=== PATIENT | female | born 1940 | race Caucasian/White ===

== ENCOUNTER → 2016-09-06 | Outpatient (CLI) | payer OTHER ==
[~2016-09-06] MED LIST: ABL/5 PO; ALPR0.25 PO; ALPR1TAB3 PO; CYTM25 PO; ESCI1TAB18 PO; ESCI1TAB6 PO; FLUT0.15 NAE; GLC500 PO; IPRA1AER2 INH; LAMO100T16 PO; LEVO150T PO; LIOT25TA10 PO; LITH1TAB10 PO; LITH300T2 PO; LMC/150 PO; METF-384 PO; METH5TAB4 PO; MULT60CA PO; SYN100 PO; SYN125 PO; TEMA30CA4 PO
[2016-09-06 10:02] LABS: ESTIMATED AVERAGE GLUCOSE 140 mg/dl; HA1C FLAG Normal (Normal)
[2016-09-06 10:25] LABS: ALT/SGPT 28 U/L (12-78); BLOOD UREA NITROGEN 24 mg/dl (7-18); CALCIUM 9.5 mg/dl (8.5-10.1); CARBON DIOXIDE 24 mmol/L (21-32); CHLORIDE 104 mmol/L (98-107); CHOLESTEROL 241 mg/dl (0-200); GLUCOSE 144 mg/dl (70-99); SODIUM 139 mmol/L (136-145); TRIGLYCERIDES 237 mg/dl (0-150); VERY LOW DENSITY LIPOPROT CALC 47 mg/dl
[2016-09-06 10:36] LABS: ALKALINE PHOSPHATASE 68 U/L (45-117); AST/SGOT 17 U/L (15-37); CHOLESTEROL/HDL RATIO 3.1; HDL CHOLESTEROL 79 mg/dl; LDL CHOLESTEROL CALCULATED 115 mg/dl
== END | disposition home or self-care (01) ==
LOC: C.LAB1850 08:19
PROVIDERS: ATTEND Family Medicine
DX: F31.81 Bipolar II disorder (principal); E78.00 Pure hypercholesterolemia, unspecified; I10 Essential (primary) hypertension; E11.9 Type 2 diabetes mellitus without complications; E06.3 Autoimmune thyroiditis

== ENCOUNTER → 2016-12-07 | Outpatient (CLI) | payer OTHER ==
[2016-12-07 18:04] LABS: THYROID STIMULATING HORMONE 0.467 uIu/ml (0.300-4.500)
== END | disposition home or self-care (01) ==
LOC: C.LAB1850 16:26
PROVIDERS: ATTEND Family Medicine
DX: E06.3 Autoimmune thyroiditis (principal)

== ENCOUNTER → 2017-03-09 | Outpatient (CLI) | payer OTHER ==
[2017-03-09 10:49] LABS: BASO % 0.9 %; BASO ABS # 0.07 K/uL (0-0.2); COMPLETE YES; EOS % 4.1 %; HEMATOCRIT 42.1 % (37-47); IG% 0.2 %; LYMPH % 45.5 %; LYMPH ABS # 3.67 K/uL (1.2-3.4); MEAN CELL VOLUME 88.6 fL (80-100); MEAN CORPUSCULAR HEMOGLOBIN 30.3 pg (25-34); MEAN CORPUSCULAR HGB CONC 34.2 g/dl (32-36); MEAN PLATELET VOLUME 11.2 fL (7.4-10.4); MONO % 7.4 %; NEUT % 41.9 %; PLATELET COUNT 254 K/uL (130-400); RED BLOOD COUNT 4.75 M/uL (4.2-5.4); WHITE BLOOD COUNT 8.06 K/uL (4.8-10.8)
[2017-03-09 11:11] LABS: ALT/SGPT 25 U/L (12-78); BLOOD UREA NITROGEN 21 mg/dl (7-18); BUN/CREATININE RATIO 20.7 (10-20); CALCIUM 9.4 mg/dl (8.5-10.1); CARBON DIOXIDE 28 mmol/L (21-32); CHLORIDE 105 mmol/L (98-107); CHOLESTEROL 203 mg/dl (0-200); GLUCOSE 126 mg/dl (70-99); POTASSIUM 4.4 mmol/L (3.5-5.1); SODIUM 138 mmol/L (136-145); TRIGLYCERIDES 237 mg/dl (0-150); VERY LOW DENSITY LIPOPROT CALC 47 mg/dl
[2017-03-09 11:20] LABS: ALKALINE PHOSPHATASE 76 U/L (45-117); AST/SGOT 13 U/L (15-37); CHOLESTEROL/HDL RATIO 2.8; HDL CHOLESTEROL 72 mg/dl; LDL CHOLESTEROL CALCULATED 84 mg/dl; THYROID STIMULATING HORMONE 0.677 uIu/ml (0.300-4.500)
[2017-03-09 12:18] LABS: ESTIMATED AVERAGE GLUCOSE 146 mg/dl; HA1C FLAG Normal (Normal)
== END | disposition home or self-care (01) ==
LOC: C.LABBC 08:01
PROVIDERS: ATTEND Internal Medicine
DX: E78.00 Pure hypercholesterolemia, unspecified (principal); I10 Essential (primary) hypertension; E11.9 Type 2 diabetes mellitus without complications; E53.8 Deficiency of other specified B group vitamins; M85.80 Other specified disorders of bone density and structure, unspecified site

== ENCOUNTER → 2017-03-24 | Outpatient (CLI) | payer OTHER | END | disposition home or self-care (01) | LOC: C.LABBC 08:45 | PROVIDERS: ATTEND Psychiatry & Neurology Psychiatry | DX: F31.81 Bipolar II disorder (principal) ==

== ENCOUNTER → 2017-04-25 | Outpatient (CLI) | payer OTHER ==
[2017-04-25 17:54] LABS: BASO % 0.5 %; BASO ABS # 0.04 K/uL (0-0.2); COMPLETE YES; EOS % 2.5 %; HEMATOCRIT 40.7 % (37-47); IG% 0.4 %; LYMPH % 36.5 %; LYMPH ABS # 3.02 K/uL (1.2-3.4); MEAN CELL VOLUME 89.8 fL (80-100); MEAN CORPUSCULAR HEMOGLOBIN 30.5 pg (25-34); MEAN CORPUSCULAR HGB CONC 33.9 g/dl (32-36); MONO % 5.8 %; NEUT % 54.3 %; PLATELET COUNT 273 K/uL (130-400); RED BLOOD COUNT 4.53 M/uL (4.2-5.4); WHITE BLOOD COUNT 8.27 K/uL (4.8-10.8)
[2017-04-25 18:16] LABS: ALT/SGPT 49 U/L (12-78); AST/SGOT 28 U/L (15-37); BLOOD UREA NITROGEN 23 mg/dl (7-18); CALCIUM 9.7 mg/dl (8.5-10.1); CARBON DIOXIDE 28 mmol/L (21-32); CHLORIDE 105 mmol/L (98-107); GLUCOSE 138 mg/dl (70-99); POTASSIUM 4.5 mmol/L (3.5-5.1); SODIUM 141 mmol/L (136-145); URIC ACID 6.2 mg/dl (2.6-7.2)
[2017-04-25 18:27] LABS: ALB/GLOB RATIO 1.1 (0.9-2); ALKALINE PHOSPHATASE 83 U/L (45-117); THYROID STIMULATING HORMONE 0.914 uIu/ml (0.300-4.500)
--- NOTE | 2017-04-25 18:27 | DIAGNOSTIC IMAGING REPORT ---
CHEST 2 VIEWS ROUTINE HISTORY: 76 years-old Female R06.02 Shortness of ettuzcW50.9 [id number] chronic shortness of breath. Initial exam. COMPARISON: None available TECHNIQUE: Frontal and lateral views of the chest FINDINGS: Cardiomediastinal and hilar silhouettes are within normal limits. There is atherosclerosis of the aorta. No pneumothorax, pleural effusion or focal airspace consolidation. There is no overt pulmonary edema. Lungs are mildly hyperinflated. Degenerative changes are seen about the spine and shoulders. Bones are mildly demineralized. IMPRESSION: Mild hyperinflation without acute cardiopulmonary abnormality. The above report was generated using voice recognition software. It may contain grammatical, syntax or spelling errors. Electronically signed by: Sonny Metz M.D. 04/25/2017 6:26 PM Dictated Date/Time: 04/25/2017 6:25 PM
== END | disposition home or self-care (01) ==
LOC: C.RAD 16:51
PROVIDERS: ATTEND Nurse Practitioner Family
DX: Z00.00 Encounter for general adult medical examination without abnormal findings (principal); R60.9 Edema, unspecified; R06.02 Shortness of breath; E11.9 Type 2 diabetes mellitus without complications; I10 Essential (primary) hypertension

== ENCOUNTER 2017-04-26 09:01 | Emergency (ER) | payer OTHER ==
[~2017-04-26] VITALS: Ht 162.6 cm; Wt 77.7 kg
[~2017-04-26 09:01] MED LIST changes: -ABL/5 PO; -ALPR0.25 PO; -ESCI1TAB18 PO; -ESCI1TAB6 PO; -FLUT0.15 NAE; -IPRA1AER2 INH; -LEVO150T PO; -LIOT25TA10 PO; -LITH1TAB10 PO; -LMC/150 PO; -METF-384 PO; -METH5TAB4 PO; -MULT60CA PO; -SYN100 PO
[2017-04-26 09:06] VITALS: TEMP 36.5; Ht 162.6 cm; Wt 77.7 kg
[2017-04-26] MEDS ORDERED: OPTIRAY 320 IV PRN (09:45)
[2017-04-26] MEDS ORDERED: MULT60CA PO (09:50)
[2017-04-26] MEDS ORDERED: METH5TAB4 PO (09:50)
[2017-04-26] MEDS ORDERED: LIOT25TA10 PO (09:50)
[2017-04-26] MEDS ORDERED: FLUT0.15 NAE (09:50)
[2017-04-26] MEDS ORDERED: LMC/150 PO (09:50)
[2017-04-26] MEDS ORDERED: SYN100 PO (09:50)
[2017-04-26] MEDS ORDERED: GLC500 PO (09:50)
[2017-04-26] MEDS ORDERED: ESCI1TAB18 PO (09:50)
[2017-04-26] MEDS ORDERED: ALPR0.25 PO (09:50)
[2017-04-26] MEDS ORDERED: ABL/5 PO (09:59)
[2017-04-26] MEDS ORDERED: METF-384 PO (09:59)
[2017-04-26] MEDS ORDERED: LEVO150T PO (09:59)
[2017-04-26 10:03] LABS: BASO % 0.7 %; BASO ABS # 0.05 K/uL (0-0.2); COMPLETE YES; EOS % 3.4 %; HEMATOCRIT 39.3 % (37-47); IG% 0.5 %; LYMPH % 27.7 %; LYMPH ABS # 2.03 K/uL (1.2-3.4); MEAN CELL VOLUME 91.2 fL (80-100); MEAN CORPUSCULAR HEMOGLOBIN 30.4 pg (25-34); MEAN CORPUSCULAR HGB CONC 33.3 g/dl (32-36); MEAN PLATELET VOLUME 10.7 fL (7.4-10.4); MONO % 8.9 %; NEUT % 58.8 %; PLATELET COUNT 253 K/uL (130-400); RED BLOOD COUNT 4.31 M/uL (4.2-5.4); WHITE BLOOD COUNT 7.33 K/uL (4.8-10.8)
--- NOTE | 2017-04-26 10:03 | EMERGENCY ROOM VISIT NOTE ---
History Report prepared by Blane: Brandie Lopez Under the Supervision of: Dr. Harley Holloway M.D. First contact with patient: 09:27 Chief Complaint: SHORTNESS OF BREATH Stated Complaint: SOB, SWOLLEN FEET, POSSIBLE BLOOD CLOT, REFERRED Nursing Triage Summary: pt reports several weeks of increased sob , to PCP 1 day ago with labs completed , told to come to Ed for CT of chest to RO PE History of Present Illness The patient is a 76 year old female who presents to the Emergency Room with complaints of increased shortness of breath over the past four months. She currently rates her discomfort as a 10/10 in severity. The patient states that over the past 2.5 weeks she has noticed foot swelling, noting that she cannot get her shoes on. She states that she has been feeling breathless for the past four months. The patient denies any history of congestive heart failure or pneumonia. She denies any chest pain. The patient denies any history of pulmonary emboli. She reports an increased cough. The patient states that she quit smoking in 1990. The patient presents to the ED at the recommendation of her doctor's office. There was concern for PE. The patient did have an ultrasound last week of her legs showing no DVT. Source of History: patient Onset: four months Position: other (global) Symptom Intensity: 10/10 Quality: other (shortness of breath) Timing: other (increased) Associated Symptoms: + cough, No chest pain Review of Systems See HPI for pertinent positives & negatives. A total of 10 systems reviewed and were otherwise negative. Past Medical & Surgical Medical Problems: (1) Breast cancer (2) Diabetes Surgical Problems: (1) H/O: hysterectomy (2) History of appendectomy Family History Patient reports no known family medical history. Social History Smoking Status: Never Smoker Smokeless Tobacco Use: No Marital Status: Housing Status: lives with family Occupation Status: retired Current/Historical Medications Scheduled Alprazolam (Xanax), 0.25 MG PO TID Aripiprazole (Abilify), 5 MG PO HS Escitalopram Oxalate (Lexapro), 5 MG PO QAM Ipratropium-Albuterol (Combivent Respimat), 2 PUFFS INH QID Levothyroxine Sodium (Synthroid), 150 MCG PO QAM Albers Carbonate Ext Rel (Lithobid Ext Rel), 300 MG PO HS Metformin Hcl (Glucophage), 1,000 MG PO BID Multiple Vitamins W/ Minerals (Preservision Areds 2), 1 TAB PO BID Allergies Coded Allergies: No Known Allergies (Unverified , 04/26/17) Physical Exam Vital Signs Date Time Temp Pulse Resp B/P (MAP) Pulse Ox O2 Delivery O2 Flow Rate FiO2 04/26/17 12:29 63 19 137/71 97 04/26/17 12:02 63 19 137/71 97 Nebulizer 04/26/17 11:05 67 18 142/69 98 Room Air 04/26/17 09:27 74 04/26/17 09:06 36.5 76 20 140/77 96 Room Air Physical Exam GENERAL: Patient is in no acute distress. HEENT: No acute trauma, normocephalic atraumatic, mucous membranes moist, no nasal congestion, no scleral icterus. NECK: No stridor, no adenopathy, no meningismus, trachea is midline. LUNGS: Clear to auscultation bilaterally, no wheeze, no rhonchi, breath sounds equal. HEART: Without murmurs gallops or rubs, regular rate and rhythm. ABDOMEN: Soft, nontender, bowel sounds positive, no hernias, no peritonitis. EXTREMITIES: No cyanosis or edema, full range of motion of all the joints without pain or difficulty, no signs for acute trauma. NEUROLOGIC: Oriented x 3, no acute motor or sensory deficits, no focal weakness. SKIN: No rash, no jaundice, no diaphoresis. Medical Decision & Procedures ER Provider Diagnostic Interpretation: Radiology results as stated below per my review and radiologist interpretation: (CHEST FOR PE) ANGIO WITH CLINICAL HISTORY: 76 years-old Female presenting with chest pain, shortness of breath. TECHNIQUE: Multidetector CT angiography of the chest was performed after administration of intravenous contrast. 3-D volumetric and/or maximum intensity projection (MIP) images were subsequently reconstructed for review. IV contrast: 94 mL of Optiray 320. A dose lowering technique was used consistent with the principles of ALARA (as low as reasonably achievable). COMPARISON: None. CT DOSE (mGy.cm): The estimated cumulative dose is 453.17 mGycm. FINDINGS: [employer] It topogram: Unremarkable. Pulmonary vasculature: The study is adequate for assessment of the pulmonary vascular tree. No filling defect within the pulmonary arteries to suggest embolus. Main pulmonary artery is not enlarged. No flattening of the interventricular septum. No intracardiac intracardiac filling defect. No reflux of contrast into the hepatic veins. Remaining chest: On soft tissue windows, post surgical changes of bilateral mastectomies likely present. Prominent hilar lymph nodes and subcentimeter mediastinal lymph nodes, possibly reactive. Scattered subcentimeter axillary lymph nodes. No internal mammary lymph nodes are apparent. Atherosclerosis of the aorta. Top normal heart size. Trace pericardial effusion. No pleural effusion. Small hiatal hernia. On lung windows, dependent changes likely atelectasis. Trace emphysematous changes at the lung apices. Pulmonary cyst noted in the left lower lobe. No pulmonary nodule is evident. Airways patent. On bone windows, mild degenerative changes of the thoracic spine. Degenerative changes of the glenohumeral joints, right greater than left. IMPRESSION: 1. No evidence of pulmonary embolus. 2. Dependent atelectasis. 3. Emphysema. 4. Prominent hilar mediastinal lymph nodes, possibly reactive. Electronically signed by: Nas Rodriguez M.D. 04/26/2017 11:40 AM Dictated Date/Time: 04/26/2017 11:34 AM CHEST ONE VIEW PORTABLE CLINICAL HISTORY: 76 years-old Female presenting with EVALUATE RESPIRATORY DISTRESS.DYSPNEA. TECHNIQUE: Portable upright AP view of the chest was obtained. COMPARISON: 04/25/2017. FINDINGS: Atherosclerosis of aortic arch. Cardiac silhouette normal in size. Mild hyperinflation as on prior exam. Lungs and pleural spaces clear. Osseous structures normal. Upper abdomen normal. IMPRESSION: 1. Mild hyperinflation. Otherwise no acute cardiopulmonary disease. Electronically signed by: Nas Rodriguez M.D. 04/26/2017 10:08 AM Dictated Date/Time: 04/26/2017 10:07 AM Laboratory Results 04/26/17 09:49 Red Blood Count 4.31, Mean Corpuscular Volume 91.2, Mean Corpuscular Hemoglobin 30.4, Mean Corpuscular Hemoglobin Concent 33.3, Mean Platelet Volume 10.7, Neutrophils (%) (Auto) 58.8, Lymphocytes (%) (Auto) 27.7, Monocytes (%) (Auto) 8.9, Eosinophils (%) (Auto) 3.4, Basophils (%) (Auto) 0.7, Neutrophils # (Auto) 4.31, Lymphocytes # (Auto) 2.03, Monocytes # (Auto) 0.65, Eosinophils # (Auto) 0.25, Basophils # (Auto) 0.05 04/26/17 09:49 04/26/17 10:45 Test 04/26/17 09:49 04/26/17 10:45 White Blood Count 7.33 K/uL (4.8-10.8) Red Blood Count 4.31 M/uL (4.2-5.4) Hemoglobin 13.1 g/dL (12.0-16.0) Hematocrit 39.3 % (37-47) Mean Corpuscular Volume 91.2 fL (80-100) Mean Corpuscular Hemoglobin 30.4 pg (25-34) Mean Corpuscular Hemoglobin Concent 33.3 g/dl (32-36) Platelet Count 253 K/uL (130-400) Mean Platelet Volume 10.7 fL (7.4-10.4) Neutrophils (%) (Auto) 58.8 % Lymphocytes (%) (Auto) 27.7 % Monocytes (%) (Auto) 8.9 % Eosinophils (%) (Auto) 3.4 % Basophils (%) (Auto) 0.7 % Neutrophils # (Auto) 4.31 K/uL (1.4-6.5) Lymphocytes # (Auto) 2.03 K/uL (1.2-3.4) Monocytes # (Auto) 0.65 K/uL (0.11-0.59) Eosinophils # (Auto) 0.25 K/uL (0-0.5) Basophils # (Auto) 0.05 K/uL (0-0.2) RDW Standard Deviation 48.2 fL (36.4-46.3) RDW Coefficient of Variation 14.3 % (11.5-14.5) Immature Granulocyte % (Auto) 0.5 % Immature Granulocyte # (Auto) 0.04 K/uL (0.00-0.02) Anion Gap 7.0 mmol/L (3-11) Est Creatinine Clear Calc Drug Dose 40.2 ml/min Estimated GFR () 50.8 Estimated GFR (Non- 43.9 BUN/Creatinine Ratio 23.2 (10-20) Calcium Level 9.7 mg/dl (8.5-10.1) Troponin I < 0.015 ng/ml (0-0.045) Thyroid Stimulating Hormone (TSH) 0.984 uIu/ml (0.300-4.500) Free Thyroxine 1.25 ng/dl (0.80-1.60) Prothrombin Time 10.2 SECONDS (9.0-12.0) Prothromb Time International Ratio 1.0 (0.9-1.1) Activated Partial Thromboplast Time 24.2 SECONDS (21.0-31.0) Partial Thromboplastin Ratio 0.9 Albers Level 0.4 mMOL/L (0.6-1.2) Laboratory results reviewed by me. Medications Administered Medications (Trade) Dose Ordered Sig/[place] Route Start Time Stop Time Status Last Admin Dose Admin Albuterol/ Ipratropium (Duoneb) 3 ml NOW STAT INH 04/26/17 11:38 04/26/17 11:39 DC 04/26/17 12:01 3 ML ECG Indication: SOB/dyspnea Rate (beats per minute): 71 Rhythm: normal sinus Findings: no acute ischemic change, no ectopy ED Course 927: The patient was evaluated in room A4B. A complete history and physical exam was performed. 1138: Ordered Duoneb 3 ml INH. 1210: I reevaluated the patient and she is resting comfortably. I discussed the exam findings with her and I discussed the treatment plan. She verbalized complete understanding and agreement. She is ready to go home. Medical Decision The patient is a 76 year old female who presents to the ED with complaints of shortness of breath. Differential diagnoses considered include Pneumonia, bronchitis, CHF, anemia, electrolyte imbalance, renal failure, PE, heart failure. There is no leukocytosis or concerning anemia. No significant electrolyte abnormality, kidney failure. The patient appears to be in a euthyroid state. EKG shows a sinus rhythm, no acute ischemia. Cardiac enzyme testing 1 is not consistent with acute cardiac injury. Chest x-ray shows some emphysema or COPD , no pneumonia or pneumothorax. Chest CT does not show evidence for PE, emphysema was seen. Albers level was not toxic. The patient was given a DuoNeb. She was reassured by her testing. I suspect her dyspnea may be from COPD/emphysema. She is a previous smoker. She is being discharged on a Combivent inhaler and will follow with her doctors office , if worsening, she can return. Medication Reconcilliation Current Medication List: was personally reviewed by me Blood Pressure Screening Patient's blood pressure: Elevated blood pressure Blood pressure disposition: Elevated BP felt to be situational, Did not require urgent referral Impression Primary Impression: Shortness of breath Additional Impression: Emphysema of lung Scribe Attestation The scribe's documentation has been prepared under my direction and personally reviewed by me in its entirety. I confirm that the note above accurately reflects all work, treatment, procedures, and medical decision making performed by me. Departure Information Dispostion Home / Self-Care Prescriptions Ipratropium-Albuterol (COMBIVENT RESPIMAT) 1 Aer Aer 2 PUFFS INH QID, #1 INH 2 Refills Prov: Harley Holloway M.D. 04/26/17 Referrals Loan Sorensen M.D. (PCP) Forms HOME CARE DOCUMENTATION FORM, IMPORTANT VISIT INFORMATION Patient Instructions My [facility] Additional Instructions start your inhaler 2 puffs 3-4 times per day see mariposa harp for recheck this week return for worsening symptoms no clot today by our testing. Problem Qualifiers
[2017-04-26] MEDS ORDERED: ESCI1TAB6 PO (10:05)
[2017-04-26] MEDS ORDERED: LITH1TAB10 PO (10:05)
--- NOTE | 2017-04-26 10:09 | DIAGNOSTIC IMAGING REPORT ---
CHEST ONE VIEW PORTABLE CLINICAL HISTORY: 76 years-old Female presenting with EVALUATE RESPIRATORY DISTRESS.DYSPNEA. TECHNIQUE: Portable upright AP view of the chest was obtained. COMPARISON: 04/25/2017. FINDINGS: Atherosclerosis of aortic arch. Cardiac silhouette normal in size. Mild hyperinflation as on prior exam. Lungs and pleural spaces clear. Osseous structures normal. Upper abdomen normal. IMPRESSION: 1. Mild hyperinflation. Otherwise no acute cardiopulmonary disease. Electronically signed by: Nas Rodriguez M.D. 04/26/2017 10:08 AM Dictated Date/Time: 04/26/2017 10:07 AM
[2017-04-26 10:27] LABS: BLOOD UREA NITROGEN 28 mg/dl (7-18); BUN/CREATININE RATIO 23.2 (10-20); CALCIUM 9.7 mg/dl (8.5-10.1); CARBON DIOXIDE 25 mmol/L (21-32); CHLORIDE 109 mmol/L (98-107); GLUCOSE 135 mg/dl (70-99); SODIUM 141 mmol/L (136-145)
[2017-04-26 10:32] LABS: THYROID STIMULATING HORMONE 0.984 uIu/ml (0.300-4.500)
[2017-04-26 11:09] LABS: PARTIAL THROMBOPLASTIN RATIO 0.9; PROTHROMBIN TIME (PATIENT) 10.2 SECONDS (9.0-12.0)
[2017-04-26] MEDS ORDERED: ALBUT/IPRATROP 3MG/0.5MG NEB 3 ML VIAL INH STA (11:38)
--- NOTE | 2017-04-26 11:41 | DIAGNOSTIC IMAGING REPORT ---
(CHEST FOR PE) ANGIO WITH CLINICAL HISTORY: 76 years-old Female presenting with chest pain, shortness of breath. TECHNIQUE: Multidetector CT angiography of the chest was performed after administration of intravenous contrast. 3-D volumetric and/or maximum intensity projection (MIP) images were subsequently reconstructed for review. IV contrast: 94 mL of Optiray 320. A dose lowering technique was used consistent with the principles of ALARA (as low as reasonably achievable). COMPARISON: None. CT DOSE (mGy.cm): The estimated cumulative dose is 453.17 mGycm. FINDINGS: Log Turner topogram: Unremarkable. Pulmonary vasculature: The study is adequate for assessment of the pulmonary vascular tree. No filling defect within the pulmonary arteries to suggest embolus. Main pulmonary artery is not enlarged. No flattening of the interventricular septum. No intracardiac intracardiac filling defect. No reflux of contrast into the hepatic veins. Remaining chest: On soft tissue windows, post surgical changes of bilateral mastectomies likely present. Prominent hilar lymph nodes and subcentimeter mediastinal lymph nodes, possibly reactive. Scattered subcentimeter axillary lymph nodes. No internal mammary lymph nodes are apparent. Atherosclerosis of the aorta. Top normal heart size. Trace pericardial effusion. No pleural effusion. Small hiatal hernia. On lung windows, dependent changes likely atelectasis. Trace emphysematous changes at the lung apices. Pulmonary cyst noted in the left lower lobe. No pulmonary nodule is evident. Airways patent. On bone windows, mild degenerative changes of the thoracic spine. Degenerative changes of the glenohumeral joints, right greater than left. IMPRESSION: 1. No evidence of pulmonary embolus. 2. Dependent atelectasis. 3. Emphysema. 4. Prominent hilar mediastinal lymph nodes, possibly reactive. Electronically signed by: Nas Rodriguez M.D. 04/26/2017 11:40 AM Dictated Date/Time: 04/26/2017 11:34 AM
[2017-04-26] MEDS ORDERED: IPRA1AER2 INH (12:21)
[2017-04-26 12:29] VITALS: BP 137/71; PULSE 63; O2SAT 97
== END 2017-04-26 12:29 | disposition home or self-care (01) ==
LOC: C.EDB 09:03 → C.EDA 12:29
DX: J43.9 Emphysema, unspecified (principal); R06.02 Shortness of breath; M79.89 Other specified soft tissue disorders; I70.0 Atherosclerosis of aorta; Z90.13 Acquired absence of bilateral breasts and nipples; Z85.3 Personal history of malignant neoplasm of breast; E11.9 Type 2 diabetes mellitus without complications; Z79.899 Other long term (current) drug therapy

== ENCOUNTER → 2017-04-26 | Outpatient (CLI) | payer OTHER ==
[2017-04-26 10:08] LABS: CHOLESTEROL/HDL RATIO 3.1
== END | disposition home or self-care (01) ==
LOC: C.LAB 08:32
PROVIDERS: ATTEND Internal Medicine
DX: Z00.00 Encounter for general adult medical examination without abnormal findings (principal); I10 Essential (primary) hypertension; E11.9 Type 2 diabetes mellitus without complications

== ENCOUNTER → 2017-11-02 | Outpatient (CLI) | payer OTHER ==
[~2017-11-02] MED LIST changes: +ABL/5 PO; +ALPR0.25 PO; -ALPR1TAB3 PO; -CYTM25 PO; +ESCI1TAB6 PO; -GLC500 PO; +IPRA1AER2 INH; -LAMO100T16 PO; +LEVO150T PO; +LITH1TAB10 PO; -LITH300T2 PO; +METF-384 PO; +MULT60CA PO; -SYN125 PO; -TEMA30CA4 PO
--- NOTE | 2017-11-02 12:07 | DIAGNOSTIC IMAGING REPORT ---
TWO VIEW CHEST CLINICAL HISTORY: Acute bronchitis. FINDINGS: PA and lateral chest radiographs are compared to chest x-ray and chest CT dated 04/26/2017. The cardiomediastinal silhouette is unremarkable. There is atherosclerotic calcification of the thoracic aorta. Chronic interstitial thickening is similar to previous. No airspace consolidation or pleural effusion is identified. There is no pneumothorax. The skeletal structures are osteopenic. The bony thorax appears intact. IMPRESSION: No active disease in the chest. Electronically signed by: Harley Galo M.D. 11/02/2017 12:06 PM Dictated Date/Time: 11/02/2017 12:05 PM
== END | disposition home or self-care (01) ==
LOC: C.RAD1850 11:35
PROVIDERS: ATTEND Family Medicine
DX: J20.9 Acute bronchitis, unspecified (principal)